=== PATIENT | male | born 1975 | race Caucasian/White ===

== ENCOUNTER → 2020-03-19 09:42 | Outpatient (BNVA) | payer OTHER, SELFPAY | PROVIDERS: PCP Nurse Practitioner Family; Visit Provider Internal Medicine Gastroenterology ==

== ENCOUNTER 2020-03-24 09:07 | Day surgery (SDC) | payer OTHER, MEDICAID, SELFPAY ==
[2020-03-24 09:31] VITALS: BP 140/87; PULSE 84; RESP 20; TEMP 36.6; O2SAT 97; BMI 35.4
--- NOTE | 2020-03-24 09:44 | HO.ANESPROP2 ---
[facility] Active Problems Active Problems: All Active Problems (Updated 03/19/20 @ 10:43 by Gilberto Sanabria MD) Weight loss (Acute) Nausea (Acute) Epigastric pain (Acute) Irritation of both eyes (Acute) ADD (attention deficit disorder) without hyperactivity (Acute) Dyslipidemia (Acute) Essential hypertension (Acute) Chronic heartburn (Acute) Past Medical History Medical History ADD (attention deficit disorder) without hyperactivity Chronic heartburn Dyslipidemia Epigastric pain Essential hypertension Irritation of both eyes Family History Family History Father Alcoholic Mother No problems noted. Surgical History Surgical History History of appendectomy Social History Social History Household Members: Spouse and Children Alcohol intake: never Smoking Status: Former smoker Use of substances other than those prescribed or required for medical reasons: Yes Substance Use Type: Marijuana Substance Use Frequency: Daily Have you been hit, kicked, punched, or otherwise hurt by someone within the past year? If so, by whom?: No Advance Directives: No Advance Directives Information Provided: Yes Current occupational status: employed Current occupation: [employer] service Meds Allergies Allergy/AdvReac Type Severity Reaction Status Date / Time buspirone Allergy Unknown palpitations, Verified 03/19/20 09:43 worsening mood ciprofloxacin [CIPROFLOXACIN] Allergy Unknown HIVES Verified 03/19/20 09:43 oxcarbazepine Allergy Unknown hyponatremi Verified 03/19/20 09:43 [From Trileptal] a seasonal Allergy Unknown unknown Verified 03/19/20 09:43 zolpidem Allergy Unknown unknown Verified 03/19/20 09:43 paroxetine [Paxil] AdvReac Unknown worsening Verified 03/19/20 09:43 mood pork derived (porcine) AdvReac Unknown mouth Verified 03/19/20 09:43 blister Exam Exam Date and Time: March 24, 2020 0944 Height,Weight and Vital Signs: Height 5 ft 9 in Weight 108.862 kg Last Vital Signs Temp 97.9 F 03/24/20 09:31 Pulse 84 03/24/20 09:31 Resp 20 03/24/20 09:31 BP 140/87 H 03/24/20 09:31 Pulse Ox 97 03/24/20 09:31 Airway Mallampati Class: II TM Dist: >3cm Neck ROM: Full Loose/Missing/Broken Teeth: No Heart: RRR Lungs: CTA Assessment and Plan Assessment Anesthesia Assessment: Anesthesia Plan Discussed and Chart Reviewed Final Anesthetic Review NPO: Yes ASA Class: II Final Preanesthetic Review: Meds/Allgs Chart Reviewed and Consent Obtained/Reviewed Patient Risk: Low Procedure Risk: Intermediate Anesthetic Plan Anesthetic Plan: MAC: Disposition: Standard PACU
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
--- NOTE | 2020-03-24 09:57 | MHC.SHP ---
Pre-Procedural Eval Section A The patient is an INPATIENT: No The History & Physical has been completed within 30 days and I have reviewed it.: Yes Section B Chief Complaint: Heart Burn Allergies: Allergies Allergy/AdvReac Type Severity Reaction Status Date / Time buspirone Allergy Unknown palpitations, Verified 02 09:43 worsening mood ciprofloxacin [CIPROFLOXACIN] Allergy Unknown HIVES Verified 02 09:43 oxcarbazepine Allergy Unknown hyponatremi Verified 03/19/20 09:43 [From Trileptal] a seasonal Allergy Unknown unknown Verified 03/19/20 09:43 zolpidem Allergy Unknown unknown Verified 03/19/20 09:43 paroxetine [Paxil] AdvReac Unknown worsening Verified 03/19/20 09:43 mood pork derived (porcine) AdvReac Unknown mouth Verified 03/19/20 09:43 blister Review of Systems Sugical H&P ROS: Negative: Constitution, Cardiovascular and Respiratory and Yes, Specify: Gastrointestinal (abdominal pain) Exam Surgical H&P Exam: Normal: Heart, Normal: Lungs, Normal: Extremities and Normal: Abdomen Plan Diagnosis/Plan: Unchanged I have reviewed the history and physical and performed a pertinent physical examination on my patient. No changes have occurred unless specified.
[2020-03-24] MEDS: Lactated Ringers 1,000 ML 100 ML IVCONT (10:12)
[2020-03-24] MEDS: Ampicillin Sodium 2 GM in 0.9 % Sodium Chloride 100 ML IV (10:13)
[2020-03-24 11:24] VITALS: BP 144/84; PULSE 76; RESP 20; TEMP 36.4; O2SAT 96
[2020-03-24 11:30] VITALS: BP 117/64; PULSE 76; RESP 16; TEMP 36.4; O2SAT 96
== END 2020-03-24 11:54 | disposition home or self-care (01) ==
PROVIDERS: PCP Nurse Practitioner Family; Visit Provider Internal Medicine Gastroenterology
PROC: 0DJ08ZZ Inspection of Upper Intestinal Tract, Via Natural or Artificial Opening Endoscopic (ICD-10-PCS; CPT 43235; principal; 2020-03-24 13:00)
DX: C16.3 Malignant neoplasm of pyloric antrum (principal); K29.70 Gastritis, unspecified, without bleeding; K31.89 Other diseases of stomach and duodenum; K44.9 Diaphragmatic hernia without obstruction or gangrene; R12 Heartburn; I10 Essential (primary) hypertension; Z88.1 Allergy status to other antibiotic agents; Z88.8 Allergy status to other drugs, medicaments and biological substances
CPT/HCPCS: 43239; 88305; 88341; 88342; J0290; J2250

== ENCOUNTER 2020-03-25 10:16 | Outpatient (REF) | payer OTHER, SELFPAY ==
--- NOTE | ~2020-03-25 | US_ITS ---
EXAMINATION: US ABDOMEN COMPLETE CLINICAL INFORMATION: Epigastric pain. COMPARISON: Previous CT of the abdomen and pelvis October 2015 and renal and bladder ultrasound November 2017 TECHNIQUE: Real-time imaging of the abdominal viscera. FINDINGS: PANCREAS: Normal. ABDOMINAL AORTA: The proximal, mid, and distal segments are normal in caliber. INFERIOR VENA CAVA: Visualized portions are normal. LIVER: Normal. The liver is normal in size. The liver contour is normal. Parenchymal echogenicity is normal. No focal hepatic lesion. There is no intrahepatic biliary duct dilatation seen. GALLBLADDER: Normal. The gallbladder is physiologically distended without evidence of stones, sludge, polyps, wall thickening or pericholecystic fluid. COMMON BILE DUCT: Normal in caliber measuring 0.3 cm in diameter. RIGHT KIDNEY: Normal. No hydronephrosis. No renal calculi or focal parenchymal lesions. The kidney measures 12 cm in maximum dimension. LEFT KIDNEY: Normal. No hydronephrosis. No renal calculi or focal parenchymal lesions. The kidney measures 13 cm in maximum dimension. SPLEEN: Normal. The spleen measures 11 cm in maximum dimension. FREE FLUID: None. US/US abdomen complete IMPRESSION: Unremarkable exam.
[2020-03-25 11:02] LABS: MANUAL DIFF FLAG NO
[2020-03-25 11:15] LABS: Basophils Percent Auto 0.5 % (0-2); Eosinophils Percent Auto 0.6 % (0-4); Hematocrit 40.6 % (42-52); Hemoglobin 13.3 g/dl (14.0-18.0); Imm Gran Abs Auto 0.02 X10*3/uL (0.00-0.03); Imm Gran Pct Auto 0.3 % (0.0-0.4); Lymphocytes Absolute Auto 2.1 X10*3/uL (1.2-4.9); Lymphocytes Percent Auto 32.6 % (20-40); Mean Corpuscular HGB Conc 32.8 g/dl (31.0-36.0); Mean Corpuscular Hemoglobin 28.6 pg (27.0-33.0); Mean Corpuscular Volume 87.3 fL (80-98); Mean Platelet Volume 11.7 fL (9.4-12.4); Monocytes Absolute Auto 0.6 X10*3/uL (0.1-1.2); Monocytes Percent Auto 9.2 % (2-11); Neutrophils Absolute Auto 3.6 X10*3/uL (2.0-8.3); Neutrophils Percent Auto 56.8 % (45-73); Platelet Count 253 X10*3/uL (160-400); Red Blood Count 4.65 X10*6/uL (4.60-5.80); Red Cell Distribution Width 13.5 % (11.0-16.0); White Blood Count 6.3 X10*3/uL (4.8-10.8)
[2020-03-25 11:48] LABS: Alanine Aminotransferase 17 U/L (0-40); Albumin Level 4.4 g/dL (3.5-5.0); Alkaline Phosphatase 104 U/L (39-117); Anion Gap 10 (12-20); Aspartate Amino Transferase 16 U/L (5-37); Bilirubin Total 0.9 mg/dL (0.0-1.0); Blood Urea Nitrogen 8 mg/dL (9-16); Calcium 9.1 mg/dL (8.4-10.2); Carbon Dioxide 28 mmol/L (22-29); Chloride 101 mmol/L (96-108); Estimated Glomerular Filt Rate > 60; Glucose Random 105 mg/dL (60-115); Lipase 38 U/L (8-78); Potassium 4.1 mmol/L (3.3-5.1); Sodium 135 mmol/L (135-145); Total Protein 7.3 g/dL (6.5-8.0)
== END 2020-03-25 10:17 | disposition home or self-care (01) ==
LOC: HO.HMGCX 10:16
PROVIDERS: PCP Nurse Practitioner Family; Visit Provider Internal Medicine Gastroenterology
DX: R10.13 Epigastric pain (principal); R11.0 Nausea; R63.4 Abnormal weight loss
CPT/HCPCS: 36415; 76700; 80053; 83690; 85025

== ENCOUNTER 2020-03-31 13:15 | Outpatient (REF) | payer OTHER, SELFPAY ==
--- NOTE | ~2020-03-31 | CT_ITS ---
EXAMINATION: CT ABDOMEN AND PELVIS WITH CONTRAST CLINICAL INFORMATION: R10.10 - Upper abdominal pain, unspecified COMPARISON: Abdominal ultrasound 03/25/2020, CT abdomen and pelvis with IV contrast 10/29/2015. TECHNIQUE: Multidetector volumetric images were obtained from the superior aspect of the liver through the pubic symphysis following administration 85 mL of Omnipaque 350 intravenous contrast. Sagittal and coronal reformatted images were obtained on the technologist's workstation. Oral contrast: No This CT examination was performed using dose optimization techniques as appropriate, variously including the following: *Automated exposure control *Adjustment of mA and/or kV according to patient size (this includes techniques or standardized protocols for targeted exams where dose is matched to indication/reason for exam; i.e. extremities or head) *Use of iterative reconstruction technique DLP: 637 mGy-cm FINDINGS: LUNG BASES: The visualized lung bases are unremarkable. LIVER, GALLBLADDER, AND BILIARY TREE: The liver is normal in size, shape, and attenuation. No focal hepatic lesion or biliary ductal dilatation is present. The gallbladder is unremarkable with no evidence of radiopaque gallstones, gallbladder wall thickening, or obvious pericholecystic inflammatory changes. PANCREAS: Unremarkable. SPLEEN: Unremarkable. ADRENAL GLANDS: Unremarkable. KIDNEYS AND URETERS: The kidneys are normal in size, shape, and attenuation. No hydronephrosis, hydroureter, or calculi seen. No perinephric stranding. BLADDER: Unremarkable. GASTROINTESTINAL TRACT: There is no bowel obstruction or focal inflammatory changes in the bowel. The appendix is not seen with certainty. There are no mesenteric inflammatory changes around the terminal ileum or cecum. There is moderate stool throughout the colon. There is no ascites or focal fluid collection. ABDOMINAL WALL: Small stable fat-containing umbilical hernia under 3 cm. LYMPH NODES: There are scattered nodes right lower quadrant mesentery medial to the cecum and terminal ileum, largest 0.7 cm short axis. No retroperitoneal or pelvic lymphadenopathy. VASCULAR: Unremarkable. PELVIC VISCERA: Unremarkable. OSSEOUS STRUCTURES: No acute bony abnormality. Again, there are degenerative disc changes L1-L2. There is right hip prosthesis on current exam which causes streak artifact through the mid and lower pelvis. CT/CT abdomen pelvis w con IMPRESSION: 1. No cholelithiasis or ductal dilatation. Unremarkable pancreas. 2. No hydronephrosis or perinephric stranding. 3. No bowel obstruction or bowel wall thickening. Appendix not visualized. No inflammatory changes around the terminal ileum or cecum. 4. Mesenteric nodes right lower quadrant medial to cecum which may be associated with mesenteric adenitis.
[2020-03-31] MEDS: iohexoL 350 MG/ML 100 ML INFUS..BTL IV (15:59)
[2020-03-31] MEDS: Barium Sulfate Oral (Berry) 450 ML ORAL.SUSP 900 ML PO (15:59)
== END 2020-03-31 13:16 | disposition home or self-care (01) ==
LOC: HO.CT 13:15
PROVIDERS: Visit Provider Internal Medicine Gastroenterology
DX: C17.0 Malignant neoplasm of duodenum (principal)
CPT/HCPCS: 74177; Q9967

== ENCOUNTER 2020-04-03 16:19 | Outpatient (REF) | payer OTHER, SELFPAY ==
--- NOTE | ~2020-04-03 | CT_ITS ---
EXAMINATION: CT CHEST WITH CONTRAST CLINICAL INFORMATION: Staging for duodenal ulcer. COMPARISON: None. TECHNIQUE: Multidetector volumetric CT imaging of the chest was obtained after the administration of 50 mL of Omnipaque 350 intravenous contrast without immediate adverse reactions. Axial MIP volume rendering provided. Sagittal and coronal reformatted images were obtained. This CT examination was performed using dose optimization techniques as appropriate, variously including the following: *Automated exposure control *Adjustment of mA and/or kV according to patient size (this includes techniques or standardized protocols for targeted exams where dose is matched to indication/reason for exam; i.e. extremities or head) *Use of iterative reconstruction technique DLP: 426 mGy-cm. FINDINGS: [employer]: Unremarkable. LUNGS: The lungs are well expanded and clear of acute pneumonic process. There is a perifissural 5 mm nodule along the right minor fissure axial image 230/5 likely, lymph node. No additional nodules seen. There is a 2 mm punctate calcification seen in the left lung base, axial image 468/5 MEDIASTINUM: The thyroid lobes are symmetrical and normal. The central trachea and the bronchi are widely patent. PLEURA: There is no pleural effusion. No pleural mass or thickening. AXILLA: No lymphadenopathy. UPPER ABDOMEN: Visualized liver, spleen, pancreas and bilateral adrenal glands are unremarkable. There are no gallstones visualized. Bilateral adrenal glands and visualized kidneys are unremarkable. OSSEOUS STRUCTURES: There is mild spondylosis throughout dorsal spine. There are degenerative disc changes and vacuum disc phenomena T10-T11 and L1-L2 disc levels. No lytic process seen. CT/CT chest w con IMPRESSION: Perifissural 5 mm nodule right lung and a 2 mm calcified nodule, likely granuloma, left lung base. No worrisome pulmonary nodules seen.
[2020-04-03] MEDS: iohexoL 350 MG/ML 100 ML INFUS..BTL 65 ML IV (16:47)
== END 2020-04-03 16:20 | disposition home or self-care (01) ==
LOC: HO.CT 16:19
PROVIDERS: PCP Nurse Practitioner Family; Visit Provider Internal Medicine Medical Oncology
DX: C17.0 Malignant neoplasm of duodenum (principal)
CPT/HCPCS: 71260; Q9967

== ENCOUNTER 2020-04-07 08:58 | Outpatient (REF) | payer OTHER, SELFPAY ==
--- NOTE | ~2020-04-07 | PE_ITS ---
EXAMINATION: Fluorine-18 FDG PET/CT Scan CLINICAL INDICATION: Initial treatment management. Malignant neoplasm of the duodenum, initial staging. PROCEDURE: 65 minutes following the intravenous administration of 21.2 mCi of fluorine 18 FDG, images from the base of the skull to the mid thighs were obtained using a combined PET/CT scanner with CT scan based attenuation correction. No oral contrast was administered. No intravenous contrast was administered. Transverse, coronal, sagittal, and volume reconstruction projections were obtained. The patient's blood glucose as determined by a finger stick, was 97 mg/dl immediately prior to injection. Total CT exam dose-length product 194.22 mGy-cm * These CT images were obtained using dose optimization techniques as appropriate, variously including the following: Automated exposure control * Adjustment of mA and/or kV according to patient size (this includes techniques or standardized protocols for targeted exams where dose is matched to indication/reason for exam; i.e. extremities or head) * Use of iterative reconstruction technique COMPARISON: No previous PET/CT scan is available for comparison. CT scan of the chest dated 04/03/[address] scan of the abdomen and pelvis dated 03/31/2020 are available for comparison. FINDINGS: (Slice numbers described in this report are numbered superiorly to inferiorly with slice #1 in the head) NECK AND VISUALIZED HEAD: No foci of abnormal FDG activity are noted. The distribution of FDG activity is physiological. There is no cervical lymphadenopathy. THORAX: There are no foci of abnormal FDG activity. There is a 0.5 cm fissural nodule in the minor fissure of the right lung, slice 92/267, too small to be characterized on the FDG PET images. This is unchanged from the 04/03/[address] scan of the chest. No additional pulmonary nodules are visualized. There is no pleural or pericardial fluid or pneumothorax. There is no mediastinal, supraclavicular, or axillary lymphadenopathy. ABDOMEN AND PELVIS: There is a focus of abnormal FDG activity in the third part of the duodenum, SUVmax 6.1, slice 156/267. A definite CT abnormality is not present on these nondiagnostic CT images or on the recent diagnostic CT scan of the abdomen and pelvis dated 03/31/2020. No other foci of abnormal FDG activity are present in the abdomen or pelvis. There is very mild diffuse FDG activity present throughout the remainder the gastrointestinal tract with no additional suspicious focal components. There is mild diverticulosis without evidence of diverticulitis. The liver, gallbladder, spleen, kidneys, adrenal glands, and pancreas appear unremarkable. There is no retroperitoneal, mesenteric, pelvic or inguinal lymphadenopathy. A small fat-containing periumbilical ventral hernia is present unchanged from prior studies. Several bilateral metallic clips are noted in the scrotum likely from prior vasectomy. MUSCULOSKELETAL: No foci of abnormal FDG activity are present in the osseous structures. A right total hip prosthesis is noted with mild FDG activity associated with the proximal aspect of the prosthesis, likely normal postoperative inflammatory changes. There is no abnormal activity adjacent to the femoral stem. There are degenerative changes in the spine, most severely at the L1-L2 disc space. No suspicious sclerotic or lytic lesions are visualized. VASCULAR: Scattered vascular calcifications including multivessel coronary calcifications are noted. PET/PET CT fusion skull to thigh IMPRESSION: 1. 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 2. No additional foci of abnormal FDG activity suspicious for metastatic or other malignant lesions are visualized. 3. Vascular calcifications including coronary.
== END 2020-04-07 08:59 | disposition home or self-care (01) ==
LOC: HO.PET 08:58
PROVIDERS: Visit Provider Internal Medicine Medical Oncology
DX: Z13.89 Encounter for screening for other disorder (principal)

== ENCOUNTER → 2020-08-12 14:08 | Outpatient (BNVA) | payer OTHER, MEDICAID, SELFPAY | PROVIDERS: PCP Nurse Practitioner Family; Visit Provider Internal Medicine Pulmonary Disease ==

== ENCOUNTER 2020-08-21 09:54 | Outpatient (REF) | payer OTHER, MEDICAID, SELFPAY ==
--- NOTE | 2020-08-21 15:48 | PFT_ITS ---
FLOWS: FEV1 of 124% of predicted at 4.89 L. FVC 123% of predicted at 6.17 L. FEV1 to FVC ratio of 0.79. Positive bronchodilator response. LUNG VOLUMES: Total lung capacity 120% of predicted at 8.16 L. Residual volume 126% of predicted at 2.39 L. Slow vital capacity 118% of predicted at 5.77 L. Expiratory reserve volume 87% of predicted at 1.31 L. Diffusion capacity is normal. IMPRESSION: No obstructive or restrictive ventilatory defect. Positive bronchodilator response. Increased total lung capacity suggests hyperinflation. Increased residual volume suggests air trapping. This test results can be observed in a patient with underlying clinical asthma. Clinical correlation is advised. MD AUGIE Morrison/MODL / [id number]
== END 2020-08-21 09:55 | disposition home or self-care (01) ==
LOC: HO.RESP 09:54
PROVIDERS: PCP Nurse Practitioner Family; Visit Provider Internal Medicine Pulmonary Disease
DX: J45.909 Unspecified asthma, uncomplicated (principal)
CPT/HCPCS: 94060; 94727; 94729

== ENCOUNTER → 2020-09-16 10:40 | Outpatient (BNVA) | payer OTHER, MEDICAID, SELFPAY | PROVIDERS: PCP Nurse Practitioner Family; Visit Provider Internal Medicine Pulmonary Disease ==

== ENCOUNTER → 2020-10-15 10:12 | Outpatient (REF) | payer OTHER, MEDICAID, SELFPAY | LOC: HO.SL 10:12 | PROVIDERS: PCP Nurse Practitioner Family; Visit Provider Internal Medicine Pulmonary Disease | DX: G47.33 Obstructive sleep apnea (adult) (pediatric) (principal) | CPT/HCPCS: 95806 ==

== ENCOUNTER → 2020-11-23 20:15 | Outpatient (REF) | payer OTHER, MEDICAID, SELFPAY | LOC: HO.SL 20:15 | PROVIDERS: Visit Provider Internal Medicine Pulmonary Disease | DX: G47.33 Obstructive sleep apnea (adult) (pediatric) (principal) | CPT/HCPCS: 95810 ==

== ENCOUNTER → 2020-12-18 15:48 | Outpatient (BNVA) | payer OTHER, MEDICAID, SELFPAY | PROVIDERS: PCP Nurse Practitioner Family; Visit Provider Internal Medicine Pulmonary Disease ==

== ENCOUNTER → 2023-10-04 14:56 | Outpatient (RCR) | payer OTHER, SELFPAY ==
[2020-04-02 10:21] VITALS: BP 124/79; PULSE 80; RESP 14; TEMP 36.3; O2SAT 97; BMI 35.9
--- NOTE | 2020-04-02 11:26 | HO.HEMONCPA ---
[facility] PET SCAN ON 04/07/20 THEY WILL CALL WITH EXACT TIME. A# [id number] 04/02/20 TO OBTAINED FROM [facility].
[2020-04-02 11:28] LABS: MANUAL DIFF FLAG NO
[2020-04-02 11:31] LABS: Basophils Percent Auto 0.3 % (0-2); Eosinophils Absolute Auto 0.1 X10*3/uL (0.0-0.4); Hematocrit 40.2 % (42-52); Hemoglobin 13.3 g/dl (14.0-18.0); Imm Gran Abs Auto 0.01 X10*3/uL (0.00-0.03); Imm Gran Pct Auto 0.2 % (0.0-0.4); Lymphocytes Absolute Auto 1.8 X10*3/uL (1.2-4.9); Lymphocytes Percent Auto 29.5 % (20-40); Mean Corpuscular HGB Conc 33.1 g/dl (31.0-36.0); Mean Corpuscular Hemoglobin 28.5 pg (27.0-33.0); Mean Corpuscular Volume 86.1 fL (80-98); Monocytes Absolute Auto 0.6 X10*3/uL (0.1-1.2); Monocytes Percent Auto 10.1 % (2-11); Neutrophils Absolute Auto 3.7 X10*3/uL (2.0-8.3); Neutrophils Percent Auto 58.9 % (45-73); Platelet Count 263 X10*3/uL (160-400); Red Blood Count 4.67 X10*6/uL (4.60-5.80); Red Cell Distribution Width 13.5 % (11.0-16.0); White Blood Count 6.2 X10*3/uL (4.8-10.8)
--- NOTE | 2020-04-02 11:32 | P.CNHO_ITS ---
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 Patient: new to practice Consult date: 04/02/20 Requesting Physician: Leann Sanabria [facility] Medical Summary: DIAGNOSIS: Adenocarcinoma of the duodenum. HPI - Consult Narrative Reason for consult: Consult for adenocarcinoma of the duodenum. Narrative: Jhony Nguyen is a pleasant unfortunate 45 year old gentleman, who had upper GI complaints for several months now. It started with epigastric pain. Pain is 8-10 in intensity and is stabbing in nature. It sometimes radiates into the shoulder pain. The pain is worse at night, wakes him up at 3 am and resolved by mid morning. In addition, he notes nausea, sweating and dry heaving. His appetite has not been that great. He has had a weight loss of 30 lbs over the past year. Sometimes he notes discomfort in the lower esophagus like the esophagus is swollen. Sometimes he gets water brash. Sometime he gets dysphagia, especially upon eating toast. He has tried Omeprazole but did not notice any improvement in pain. Lately, he has been having explosive BMs and sometimes stool is hard for the past several years. Denies black stools or rectal bleeding. In the past he has been constipated. Sometimes he has to shower that makes him go to the bathroom. Patient denies known family history of colon cancer or other GI malignancies. Dad had colon polyps in his 40's or 50's. PAST EGD/COLONOSCOPY: None in the past per patient report He has pork allergy - gets blood blisters in mouth and starts spitting up blood. PAST GI HISTORY BY REVIEW OF MEDICAL RECORDS: 03/13/20 PATIENT WAS SEEN BY DR[address] CHOI: He complains of sharp shooting pains in the epigastric area, which has been present now for the last several days, accompanied by bloating and constant passing gas. He currently is on omeprazole which he takes in the morning affording only temporary relief. Has been getting his symptoms mostly at night after lying down and has a bad habit of eating late at night. Advised to take omeprazole at bedtime 1 hour before eating supper or just before going to sleep and prescription also sent for famotidine mg to be taken 1 tablet in the morning before breakfast. Gastroenterology referral ordered patient advised to avoid food triggers such as anything with tomatoes, fried, greasy foods and avoid eating a heavy meal at night. He had an upper endoscopy by Dr. Sanabria on 03/24 which revealed: Stomach: Moderate gastric erythema. Biopsies were obtained. Grade 3 flap valve on retroflexed examination of the cardia. Duodenum: Normal duodenal bulb. Major duodenal papilla was visualized in the 2nd part of duodenum draining clear bile. Multiple 1 cms nodules in the medial wall of 3rd and 4th part of duodenum (distal to the papilla) - multiple biopsies were obtained Intervention: Biopsies as noted above. Pathology revealed: 1. Small-bowel nodules: Superficial fragments of adenocarcinoma. 2. Stomach, antrum: Small fragment of adenocarcinoma. The carcinoma in stomach is favored to be contaminant from the above. CT scan of the chest from 03/31 revealed: 1. No cholelithiasis or ductal dilatation. Unremarkable pancreas. 2. No hydronephrosis or perinephric stranding. 3. No bowel obstruction or bowel wall thickening. Appendix not visualized. No inflammatory changes around the terminal ileum or cecum. 4. Mesenteric nodes right lower quadrant medial to cecum which may be associated with mesenteric adenitis. Review of systems: He has been rather fatigued lately. No fever nor chills. Appetite is poor. He has lost 30 lb over the past few months. He denies headache but he does get dizzy at times. Patient denies major pulmonary problems. He has a history of asthma. Saw a cardiopulmonary specialist in [place] for an enlarged ventricle - had a stress test, echo a year ago and per patient these were normal. Has sleep apnea and does not use a CPAP machine Denies problems with anesthesia in the past. Takes a baby aspirin daily and denies being on chronic anticoagulation. : He denies dysuria hematuria. Musculoskeletal: He denies joint pains. Had a hip replacement in 12/2019. Psychiatry: Depression. Dermatology: Itching skin of the back. Family history: Maternal Grandfather had prostate cancer. Paternal uncle with lung cancer. No known GI malignancy in the family. Social history: He works at a [employer]. He is . He has 2 children. He started smoking Cathy on a last year. Denies alcohol. Review of Systems - Constitutional Reports system reviewed and no additional complaints, except as documented, Reports weakness, Reports weight loss - Eyes Reports system reviewed and no additional complaints, except as documented - ENT Reports system reviewed and no additional complaints, except as documented - Cardiovascular Reports system reviewed and no additional complaints, except as documented - Respiratory Reports no additional respiratory complaints - Gastrointestinal Reports system reviewed and no additional complaints, except as documented, Reports abdominal pain, Reports bloating, Reports constipation, Reports heartburn, Denies bright, red blood in stools - Genitourinary Genitourinary: Reports no additional male genitourinary complaints - Musculoskeletal Reports system reviewed and no additional complaints, except as documented - Integumentary/Breasts Skin/Breast: Reports no additional skin complaints - Neurologic Reports system reviewed and no additional complaints, except as documented - Psychiatric Reports system reviewed and no additional complaints, except as documented - Endocrine Reports no additional endocrine complaints - Hematologic/Lymphatic Reports system reviewed and no additional complaints, except as documented - Allergic/Immunologic Reports system reviewed and no additional complaints, except as documented PMFSH Medical History: Medical History (Last Reviewed 03/24/20 @ 09:57 by Echo Wesley) ADD (attention deficit disorder) without hyperactivity Chronic heartburn Dyslipidemia Epigastric pain Essential hypertension Irritation of both eyes Functional capacity: independent ambulation Patient : No Family History: Family History (Last Updated 04/02/20 @ 10:29 by Kendra Fairchild) Father Alcoholic DVT (deep venous thrombosis) Stroke COPD (chronic obstructive pulmonary disease) Mother HTN (hypertension) Maternal Grandfather Prostate cancer Heart disease Maternal Grandmother Heart disease A-fib Surgical History: Surgical History (Last Updated 04/02/20 @ 10:29 by Kendra Fairchild) History of appendectomy History of hip replacement Hx of tonsillectomy Social History: Social History (Last Updated 04/02/20 @ 10:29 by Kendra Fairchild) Living Situation History: Household Members: Spouse Household Members: Children Housing: House Alcohol History: Alcohol intake: former Alcohol History Details: Alcohol intake frequency: does not drink Tobacco History: Packs Per Day: 2 Substance Use History: Substance Use Type: Marijuana Occupation Assessmet: Current occupational status: employed Current occupation: [employer] Smoking status: Former smoker Home Medications and Allergies Home Medications Medication Instructions Recorded Confirmed Type aspirin [Aspir-81] 81 mg PO DAILY 04/02/20 04/02/20 History dextroamphetamine-amphetamine 1 cap PO BID 04/02/20 04/02/20 History [Adderall XR] fluticasone propion-salmeterol 1 puff PO BID 04/02/20 04/02/20 History [Advair Diskus] Allergies Allergy/AdvReac Type Severity Reaction Status Date / Time buspirone Allergy Unknown palpitations, Verified 03/19/20 09:43 worsening mood ciprofloxacin [CIPROFLOXACIN] Allergy Unknown HIVES Verified 03/19/20 09:43 oxcarbazepine Allergy Unknown hyponatremi Verified 03/19/20 09:43 [From Trileptal] a seasonal Allergy Unknown unknown Verified 03/19/20 09:43 zolpidem Allergy Unknown unknown Verified 03/19/20 09:43 paroxetine [Paxil] AdvReac Unknown worsening Verified 03/19/20 09:43 mood pork derived (porcine) AdvReac Unknown mouth Verified 03/19/20 09:43 blister Physical Exam Vital signs: Vital Signs Temp 97.3 F 04/02/20 10:21 Pulse 80 04/02/20 10:21 Resp 14 04/02/20 10:21 BP 124/79 04/02/20 10:21 Pulse Ox 97 04/02/20 10:21 Intake & Output 04/01/20 04/02/20 04/02/20 18:59 06:59 18:59 Other: Weight 110.3 kg Weight in Grams [id number] Weight 110.3 kg - Constitutional Present: mild distress - Routine HEENT Exam Head: Present: normal inspection ENT: Present: mucous membranes moist - Routine Neck Exam Present: supple - Routine Respiratory Exam Present: CTAB - Routine Cardiovascular Exam Cardiovascular: Present: RRR, S1, S2 - Routine Abdominal Exam Present: tenderness - Routine Rectal Exam Patient deferred: digital exam - Routine Skin Exam Present: intact - Routine Neurological Exam Present: alert, oriented X3 - Detailed Neurological Exam: Coma Scale Eye Opening: Spontaneous (4) Verbal Response: Oriented (5) Motor Response: Obeys commands (6) Kenneth Coma Scale Total: 15 - Routine Psychiatric Exam Present: normal mood Hem/Onc Consult Result - Labs CBC & Chem 7: 04/02/20 11:25 04/02/20 11:25 Assessment and Plan (1) Adenocarcinoma of duodenum Status: Acute This is a pleasant 45-year-old gentleman with a history of epigastric pain dyspepsia and weight loss for several months now. Due to refractory symptoms he underwent an upper endoscopy on March 24 this revealed: Stomach: Moderate gastric erythema. Biopsies were obtained. Grade 3 flap valve on retroflexed examination of the cardia. Duodenum: Normal duodenal bulb. Major duodenal papilla was visualized in the 2nd part of duodenum draining clear bile. Multiple 1 cms nodules in the medial wall of 3rd and 4th part of duodenum (distal to the papilla) - multiple biopsies were obtained Intervention: Biopsies as noted above. Pathology revealed: 1. Small-bowel nodules: Superficial fragments of adenocarcinoma. 2. Stomach, antrum: Small fragment of adenocarcinoma. The carcinoma in stomach is favored to be contaminant from the above. CT scan of the chest from 03/31 revealed: 1. No cholelithiasis or ductal dilatation. Unremarkable pancreas. 2. No hydronephrosis or perinephric stranding. 3. No bowel obstruction or bowel wall thickening. Appendix not visualized. No inflammatory changes around the terminal ileum or cecum. 4. Mesenteric nodes right lower quadrant medial to cecum which may be associated with mesenteric adenitis. Tumor markers: CEA: 2.3. CA 19-9: 19. He appears to have a early stage adenocarcinoma of the duodenum. PLAN: To accurately stage him. Will refer him for endoscopic ultrasound. Will proceed with a PET scan/MRI of the abdomen for further evaluation. I will refer him to Dr. Anna, for surgical resection if the above staging is favorable. He will likely need a Whipple's procedure. He will return in a couple weeks for a follow-up visit. Thank you, CC: Dr. Choi. Dr. Gilberto Sanabria. Dr. Jordan Eng. Dr. Anna.
[2020-04-02 11:58] LABS: Alanine Aminotransferase 16 U/L (0-40); Albumin Level 4.5 g/dL (3.5-5.0); Alkaline Phosphatase 104 U/L (39-117); Anion Gap 11 (12-20); Aspartate Amino Transferase 18 U/L (5-37); Bilirubin Total 0.8 mg/dL (0.0-1.0); Blood Urea Nitrogen 15 mg/dL (9-16); Calcium 9.5 mg/dL (8.4-10.2); Carbon Dioxide 25 mmol/L (22-29); Chloride 105 mmol/L (96-108); Creatinine Clr Calc Pharmacy 154.3; Estimated Glomerular Filt Rate > 60; Glucose Random 104 mg/dL (60-115); Sodium 137 mmol/L (135-145); Total Protein 7.3 g/dL (6.5-8.0)
--- NOTE | 2020-04-02 15:16 | MHC.HEMONCSW ---
PATIENT IS A 45 YEAR OLD MALE. INDEPENDENT, ABLE TO MAKE NEEDS KNOWN. VERY ANXIOUS ABOUT DIAGNOSIS OF STOMACH CANCER. PER HIS REQUEST, AVAILABLE VIA [facility]. HISTORY OF ANXIETY AND DEPRESSION WITH ATTENTION DEFICIT DISORDER COMPLIANT WITH PRIVATE MENTAL HEALTH PROVIDER AND MEDS. SOBER FROM ALCOHOL FOR 20 YEARS WHICH HE IS PROUD OF...HOPES NOT TO REQUIRE NARCOTICS FOR PAIN RELIEF WHICH IS AN ISSUE. PATIENT DOESN'T HAVE A HEALTH CARE PROXY AND WILL COMPLETE ONE NEXT VISIT. REASSURANCE, GUIDANCE, EDUCATION AND SUPPORT PROVIDED. HE AND ARE AWARE OF MY AVAILABILITY.
--- NOTE | 2020-04-03 11:14 | MHC.HEMONCMA ---
Dr Ho would like for the patient to be seen at [facility] so he can get the endoscopic ultrasound for staging of the cancer, and a consult with Dr Santos's office for surgery to remove the cancer. I sent over all the information for the patient to Dr Eng/Desilets office ( [facility]) and i am waiting for them for a consult date. Dr Santos's office needs to have the imaging uploaded into [employer], which i will call our radiology department to see if that is something they do and have the slides sent over to [facility] as well.
[2020-04-03 12:52] LABS: Carbohydrate Antigen 19-9 19 U/mL (<34)
--- NOTE | 2020-04-03 14:28 | MHC.HEMONCMA ---
[facility] surgeon called with a date and time for the patient. He is scheduled for 04/09/2020 at 11am. Patient was notified.
--- NOTE | 2020-04-09 13:10 | MHC.HEMONCMA ---
On 04/06/20 ct report was faxed to Dr Anna per Dr Spear request.
--- NOTE | 2020-04-10 09:25 | MHC.HEMONCMA ---
Patient called stating that Dr Santos is refusing to perform surgery on the patient due to his marijuana use for his appetite. Patient spoke with Dr Ho and they agreed on a second opion at [facility] with Dr Mcclelland. I called the office of Dr Mcclelland and scheduled the patient a consult for 04/14/2020 at 3pm. They are requesting medical records and the actual images burned on to a disk. Records were faxed and Radiology was called to burn the images on the disks. Patient called and told of appt for 04/14/2020 at 3pm at [facility], [facility] 4th floor [address]. He was also told to call [phone] to register for the hospital to make sure they have accurate information for him. Patient understands and know to go to Radiology here at the hospital to bring the images to his consult on the . He will call if he needs anymore help.
--- NOTE | 2020-06-01 08:47 | MHC.HEMONCMA ---
Left a voicemail for Dr Michael's office to fax over the patient's consult report to us from 04/14/2020, and asked for a call back if the patient did not end up going to the appt.
== END | disposition home or self-care (01) ==
LOC: HO.ONC 04-02 10:15
PROVIDERS: PCP Nurse Practitioner Family; Referring Provider Internal Medicine Gastroenterology; Visit Provider Internal Medicine Medical Oncology
DX: C17.0 Malignant neoplasm of duodenum (principal)
CPT/HCPCS: 36415; 80053; 82378; 85025; 86301; 99204